=== PATIENT | male | born 1995 | race American Indian/Alaskan Native ===

== ENCOUNTER 2018-07-18 21:24 | Emergency (ER) | payer OTHER ==
[2018-07-18] MEDS ORDERED: PROVENTIL IH ONE (21:32)
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
[2018-07-18] MEDS ORDERED: SOLU-Medrol IM ONE (21:33)
[2018-07-18] MEDS ORDERED: CLARITIN PO ONE (21:33)
[2018-07-18 21:41] VITALS: BP 134/77
--- NOTE | 2018-07-18 23:11 | XRay Report ---
PROCEDURE: XR CHEST ROUTINE 2V TECHNIQUE: PA and lateral chest radiographs were obtained. HISTORY: Dyspnea COMPARISONS: None. FINDINGS: Heart: Normal. Mediastinum/Vessels: Normal. Lungs/Pleural space: No infiltrate, effusion, or pneumothorax. Bony thorax: No acute osseous abnormality. IMPRESSION: No radiographic evidence of acute abnormality. This document is electronically signed by Opal Soto MD., July 18 2018 11:09:53 PM ET
== END 2018-07-18 23:18 | disposition left against medical advice (07) ==
LOC: ED 21:24
DX: J45.909 Unspecified asthma, uncomplicated (principal); Z53.21 Procedure and treatment not carried out due to patient leaving prior to being seen by health care provider
CPT/HCPCS: 71046; 93005; 93010

== ENCOUNTER 2019-01-31 19:39 | Emergency (ER) | payer OTHER ==
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
[2019-01-31 20:02] VITALS: BP 116/68
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
[2019-01-31] MEDS ORDERED: HYDROcodone/ACETAMINOPHEN 5-325 MG TAB PO STA (22:44)
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
== END 2019-01-31 23:20 | disposition home or self-care (01) ==
LOC: ED 19:39
DX: M54.2 Cervicalgia (principal); M54.5 Low back pain; R51 Headache; J45.909 Unspecified asthma, uncomplicated; Z79.899 Other long term (current) drug therapy; Z91.040 Latex allergy status; Z88.0 Allergy status to penicillin; V49.49XA Driver injured in collision with other motor vehicles in traffic accident, initial encounter; Y93.89 Activity, other specified; Y92.410 Unspecified street and highway as the place of occurrence of the external cause; Y99.8 Other external cause status
CPT/HCPCS: 72100

== ENCOUNTER 2019-05-02 13:04 | Emergency (ER) | payer SELFPAY ==
[2019-05-02 13:12] VITALS: BP 132/75
[2019-05-02] MEDS ORDERED: predniSONE 20 MG TAB PO ONE (13:17)
--- NOTE | 2019-05-02 13:19 | Event Note ---
ED Screening Note ED Screening Note: 24 yo male presents with chest pain, headache, cough. Desires to be tested for flu. Father recently had the flu. This initial assessment/diagnostic orders/clinical plan/treatment(s) is/are subject to change based on patients health status, clinical progression and re- assessment by fellow clinical providers in the ED. Further treatment and workup at subsequent clinical providers discretion. Patient/guardian urged not to elope from the ED as their condition may be serious if not clinically assessed and managed. Initial orders include: ekg cxr prednisone
--- NOTE | 2019-05-02 14:03 | XRay Report ---
CHEST 2 VIEWS INDICATION: chest pain cough asthma. COMPARISON: 07/18/2018 FINDINGS: Support devices: None. Heart: Within normal limits. Lungs/pleura: No acute air space or interstitial disease. No pneumothorax. Additional findings: None. IMPRESSION: 1. No acute findings. Signer Name: Diogo Anthony MD Signed: 05/02/2019 1:58 PM Workstation Name: [id number]
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
[2019-05-02] MEDS ORDERED: ALBUTEROL 2.5 MG/3 ML NEBU IH ONE (14:58)
[2019-05-02] MEDS ORDERED: ACETAMINOPHEN 500 MG TAB PO ONE (15:03)
== END 2019-05-02 15:50 | disposition home or self-care (01) ==
LOC: ED 13:04
DX: J45.901 Unspecified asthma with (acute) exacerbation (principal); R51 Headache; Z91.040 Latex allergy status; Z88.0 Allergy status to penicillin; Z79.899 Other long term (current) drug therapy
CPT/HCPCS: 71046; 93005; 93010; 94640; 99283; J7512

== ENCOUNTER 2019-05-04 14:03 | Emergency (ER) | payer SELFPAY ==
[2019-05-04 15:28] VITALS: BP 121/65
--- NOTE | 2019-05-04 15:31 | Emergency Department Report ---
Chief Complaint: Chest Pain Stated Complaint: CHEST, BACK, NECK PAIN Time Seen by Provider: 05/04/19 15:25 - HPI History of Present Illness: 24 y/o male comes in for body ache, fever cough. Coup with chest pain. Last took Tylenol yesterday. Dry mouth. Eye pain. No flu vaccine. - Exam Physical Exam: Axo times 3 NAD non toxic Chest CTAB Heart RRR ambulatory without difficulties MSE screening note: Focused history and physical exam performed. Due to findings the following was ordered: 24 y/o male comes in for body ache, fever cough. Coup with chest pain. Last took Tylenol yesterday. Dry mouth. Eye pain. No flu vaccine. Patient has been on zithromax. Flu like symptoms passed 48 hours. Recommend Ibuprofen Robitussin claritin all over the counter. Increase fluids. ED Disposition for MSE Clinical Impression: Flu-like symptoms Disposition: MED SCREENING EXAM-LEFT Is pt being admited?: No Does the pt Need Aspirin: No Condition: Stable Instructions: Influenza (ED) Additional Instructions: Recommend Ibuprofen Robitussin claritin all over the counter. Increase fluids. Referrals: Your,Primary Care Provider [Other] - 3-5 Days Forms: Work/School Release Form(ED)
== END 2019-05-04 16:55 | disposition left against medical advice (07) ==
LOC: ED 14:03
DX: R50.9 Fever, unspecified (principal); R05 Cough; R07.89 Other chest pain
CPT/HCPCS: 93005; 93010; 99282

== ENCOUNTER 2019-05-23 19:13 | Emergency (ER) | payer SELFPAY ==
[2019-05-23 19:31] VITALS: BP 127/80
--- NOTE | 2019-05-23 19:38 | Emergency Department Report ---
Blank Doc - Documentation Documentation: 24-year-old male that presents with chest pain and SOB. This initial assessment/diagnostic orders/clinical plan/treatment(s) is/are subject to change based on patient's health status, clinical progression and re- assessment by fellow clinical providers in the ED. Further treatment and workup at subsequent clinical providers discretion. Patient/guardians urged not to elope from the ED as their condition may be serious if not clinically assessed and managed. Initial orders include: 1- Patient sent to [facility] for further evaluation and treatment 2- labs 3- EKG 4- CXR
--- NOTE | 2019-05-23 20:53 | XRay Report ---
CHEST 2 VIEWS INDICATION: Chest Pain. COMPARISON: 05/02/2019 FINDINGS: Support devices: None. Heart: Within normal limits. Lungs/pleura: No acute air space or interstitial disease. No pneumothorax. Additional findings: None. IMPRESSION: 1. No acute findings. Signer Name: Diogo Anthony MD Signed: 05/23/2019 8:48 PM Workstation Name: [id number]
[2019-05-23 20:57] LABS: Basophils % (Auto) 0.5 % (0.0-1.8); Eosinophils # (Auto) 0.2 K/mm3 (0.0-0.4); Eosinophils % (Auto) 2.6 % (0.0-4.3); Hematocrit 42.6 % (35.5-45.6); Hemoglobin 14.5 gm/dl (11.8-15.2); Lymphocytes # (Auto) 2.1 K/mm3 (1.2-5.4); Mean Corpuscular HGB Conc 34 % (32-34); Mean Corpuscular Volume 94 fl (84-94); Monocytes # (Auto) 0.9 K/mm3 (0.0-0.8); Monocytes % (Auto) 11.5 % (0.0-7.3); Platelet Count 272 K/mm3 (140-440); Red Blood Count 4.53 M/mm3 (3.65-5.03); Red Cell Distribution Width 13.3 % (13.2-15.2)
[2019-05-23 21:23] LABS: Alanine Aminotransferase 19 units/L (7-56); Albumin 4.6 g/dL (3.9-5); BUN/Creatinine Ratio 11; Blood Urea Nitrogen 14 mg/dL (9-20); Hemolysis Index 6
== END 2019-05-23 21:56 | disposition left against medical advice (07) ==
LOC: ED 19:13
DX: R07.89 Other chest pain (principal); Z53.21 Procedure and treatment not carried out due to patient leaving prior to being seen by health care provider
CPT/HCPCS: 36415; 71046; 80053; 84484; 85025; 93005; 93010